=== PATIENT | female | born 1995 | race Caucasian/White ===

== ENCOUNTER 2016-12-02 09:29 | Inpatient (IN) | payer OTHER ==
[2016-12-02] VITALS (30 sets, daily range): BP systolic 126–163; BP diastolic 65–98
[~2016-12-02] VITALS: Ht 172.7 cm; Wt 97.0 kg
[2016-12-02] MEDS ORDERED: LABETALOL HCL 100 MG/20 ML VIAL IV STA (09:34)
[2016-12-02] MEDS ORDERED: BENA25CA4 PO (09:36)
[2016-12-02] MEDS ORDERED: PRENTAB9 PO (09:36)
[2016-12-02] MEDS ORDERED: CALCIUM GLUCONATE 1,000 MG in D5W MINI-BAG PLUS 100 ML IV PRN (10:15)
[2016-12-02] MEDS ORDERED: MAG Sulf (L&D) 4 GM/100 ML 4 GM in APPROPRIATE DILUENT 1 EA IV ONE (10:15)
[2016-12-02 10:29] LABS: MEAN CORPUSCULAR HEMOGLOBIN 28.2 pg (27.0-33.0); MEAN CORPUSCULAR HGB CONC 33.3 g/dl (32.0-36.5); MEAN CORPUSCULAR VOLUME 84.6 fl (80.0-96.0); RED CELL DISTRIBUTION WIDTH 13.1 % (11.5-14.5); WHITE BLOOD COUNT 7.8 K/mm3 (4.0-10.0)
[2016-12-02] MEDS: LR 1,000 ML IV SCH (10:37)
[2016-12-02 10:49] LABS: ALBUMIN 2.6 GM/DL (3.2-5.2); ALBUMIN/GLOBULIN RATIO 0.96 (1.00-1.93); ALKALINE PHOSPHATASE 260 U/L (45-117); ALT/SGPT 14 U/L (12-78); ANION GAP 8 MEQ/L (8-16); AST/SGOT 16 U/L (15-37); BILIRUBIN,TOTAL 0.4 MG/DL (0.2-1.0); BLOOD UREA NITROGEN 4 MG/DL (7-18); CALCIUM LEVEL 8.3 MG/DL (8.5-10.1); CARBON DIOXIDE LEVEL 25 MEQ/L (21-32); CHLORIDE LEVEL 109 MEQ/L (98-107); CREATININE FOR GFR 0.49 MG/DL (0.55-1.02); GLUCOSE, FASTING 86 MG/DL (70-105); POTASSIUM SERUM 3.5 MEQ/L (3.5-5.1); SODIUM LEVEL 142 MEQ/L (136-145); TOTAL PROTEIN 5.3 GM/DL (6.4-8.2); URIC ACID 4.1 MG/DL (2.6-6.0)
[2016-12-02] MEDS: MAG Sulf (OBGYN) 20GM/500ML 20,000 MG in APPROPRIATE DILUENT 1 EA IV SCH ×2 (11:25→20:15)
[2016-12-02] MEDS ORDERED: OXYTOCIN DRIP 30 UNITS in APPROPRIATE DILUENT 1 EA IV SCH (12:45)
--- NOTE | 2016-12-02 13:41 | HPEPDOC ---
Obstetrical History & Physical General Date of Admission Dec 02, 2016 at 09:40 History of Present Illness 21 yo G1 @ 38+3 by 6+6 wk US done on 25APR2017; Final INGE-13DEC2016. Presents to L&D from clinic with severe range BPs and a COLEMAN. Denies DFM, CTX, LOF and VB. GBS negative. Chief Complaint: Pre-eclamsia Information Provided By: Patient Age: 21 : 1 Care Care: Good Care Number of Visits: 11 Dating Final EDC: Dec 13, 2016 Final EDC for Daily Update: Dec 13, 2016 Final EDC by: 1st trimester (US) LMP: Feb 26, 2016 1st Trimester Date: Apr 25, 2016 Weeks + Days: 6.6 Estimated Date of Confinement: Dec 13, 2016 EGA at Admission: 38.3 Antepartum Course Diagnos(e)s 1. varicella NI 2. excessive wt gain 3. 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: No pertinent history Past Medical History Medical History hx stress fx in hips Surgical History: Tonsilectomy (2010), [place] teeth (2014) Family History Significant Family History: No pertinent family hx Social History Marital Status: Family situation: Spouse/partner home Psychosocial History: No pertinent psych hx * Smoker: non-smoker Alcohol: Denies Drugs: denies Abuse Violence Screening Have you been hit/kicked/slapp: No Have you been sexually assault: No Imunizations Tdap status: current ([id number]) Influenza Status: current ([id number]) Allergies Coded Allergies: No Known Allergies (Unverified , 12/02/16) Medications Scheduled Multivitamins/ ( 27-0.8 mg) 1 Tab Tab 1 TAB PO DAILY Scheduled PRN Diphenhydramine HCl (Benadryl Allergy) 25 Mg Cap 25 MG PO QHS PRN PRN SLEEP Physical Examination Physical Examination GENERAL: A&O x 3 BREAST: gravid ABDOMEN: Gravid and non-tender to touch. FETUS: Vertex by Augusto HEART RATE: RRR no m/r/g LUNGS: CTA EXTREMITIES: +1 bilat LE pitting edema. No clonus. DTRs +3 EFW- 3900 grams Vital Signs/I&O Vital Signs Date Time Temp Pulse Resp B/P Pulse Ox O2 Delivery O2 Flow Rate FiO2 12/02/16 11:40 98.9 90 18 158/95 12/02/16 10:01 Room Air Laboratory Data 24H LABS Laboratory Tests 2 12/02/16 10:08: Serology Scanned Report Hepatitis B Testing 12/02/16 10:18: Blood Urea Nitrogen 4L, Creatinine 0.49L, Sodium Level 142, Potassium Level 3.5 , Chloride Level 109H, Carbon Dioxide Level 25, Calcium Level 8.3L, Aspartate Amino Transf (AST/SGOT) 16, Alanine Aminotransferase (ALT/SGPT) 14, Lactate Dehydrogenase 218, Alkaline Phosphatase 260H, Total Bilirubin 0.4, Uric Acid 4.1 , Total Protein 5.3L, Albumin 2.6L, Albumin/Globulin Ratio 0.96L, Anion Gap 8, Syphilis Serology NONREACTIVE 12/02/16 10:40: Fibrinogen 441 12/02/16 10:50: Urine Random Creatinine 88.1, Urine Random Total Protein 245.7H CBC/BMP Laboratory Tests 12/02/16 10:18 Calcium Level 8.3 L, Aspartate Amino Transf (AST/SGOT) 16, Alanine Aminotransferase (ALT/SGPT) 14, Lactate Dehydrogenase 218, Alkaline Phosphatase 260 H, Total Bilirubin 0.4, Uric Acid 4.1, Total Protein 5.3 L, Albumin 2.6 L, Red Blood Count 4.58, Mean Corpuscular Volume 84.6, Mean Corpuscular Hemoglobin 28.2, Mean Corpuscular Hemoglobin Concent 33.3, Red Cell Distribution Width 13.1 Pertinent Laboratoy Data Blood Type: A+ RBC Antibody Screen: Negative HIV: Negative Hepatitis B: Negative Hepatitis C: Unknown Rapid Plasma Reagin: Nonreactive Rubella: Immune Varicella: Nonreactive Chlamydia/Gonorrhea: Negative Group B Streptococcus: Negative Quad Screen Test: Positive (Done at 28 wks. ) Cystic Fibrosis: Declined Glucose Tolerance Test: 112 Anatomy Ultrasound Ultrasound Date: Jul 23, 2016 Placenta Location: Posterior Normal Anatomy: Yes Placenta Previa: No Estimated Weight (grams): 366 Steroid Therapy Steroid Therapy: No Vaginal Examination Dilation: other (Pt sent from clinic. Unable to palpate cervix in clinic d/t being posterior) Presentation: Cephalic presentation Position: Vertex (occiput) Assessment Heart Rate (FHR): 130 Variability: Moderate Accelerations: Positive Decelerations: None Tocometer Contractions: Yes Frequency: irregular, every 2-5 min. Duration: less than 90 seconds Strength: palpated as mild, resting tone palp/soft Multi-drug resistant Organism: No history of MDRO Assessment/Plan Assessment 21 yo G1 @ 38+3 by 6+6 wk US done on 25APR2017; Final INGE-13DEC2016 with pre-e with severe features. Denies DFM, CTX, LOF and VB. GBS negative. 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 Diet: cllear liquid GBS negative IV and labs per unit protocol + pre-e panel Counseled on Pitocin IOL LR, pitocin and magnesium 125ml/hr total Pitocin titrate per unit protocol Magnesium continue at 2 gm/hr unless sx of toxicity develop Q1 hour magnesium checks by nursing staff Calcium gluconate at bedside Anticipate C-S as appropriate. ROHIT QUACH CNM Dec 02, 2016 13:41
--- NOTE | 2016-12-02 16:53 | IPNPDOC ---
Obstetrical Progress Note Date of Service The patient was seen on 12/02/16 at 16:38. Progress Note INTRAPARTUM PROGRESS NOTE [id number] @1630 21 yo G1 @ 38+3 by 6+6 wk US done on 25APR2017; Final INGE-13DEC2016. Presents to L&D from clinic with severe range BPs and a COLEMAN. IOL for pre-e with severe features. GBS negative. S: pt reports she has a COLEMAN. Denies n/v, RUQ pain and visual changes. States she just does not feel well. spouse at bedside. O: VS- continues to have mild range BPs and normal range BPs, all other VS WNL , afebrile FHR- BL- 125, moderate variability, + accels, no decels CTX- Q 2-4 min, lasting < 90 sec, palpated as mild, resting tone palpated as soft SVE- closed/thick/-2, post/firm/vtx DTRs +3, lungs CTA, + 1 pitting edema bilat LE Pitocin @ 12 mU/min Magnesium 2 gms/hr LR @ 63 ml/hr Urine Output: 1090 ml since admission A: 21 yo G1 @ 38+3 here for IOL for pre-e with severe features. CAT I FHR tracing. no cervical change noted. P: continue to monitor and assess, Q1 hour mag checks, Reassess in 2 hours or prn, continue to titrate pitocin per unit protocol. VS, I&O, [facility] Vital Signs/I&O Vital Signs Date Time Temp Pulse Resp B/P Pulse Ox O2 Delivery O2 Flow Rate FiO2 12/02/16 15:09 91 18 141/79 12/02/16 13:40 99.6 12/02/16 10:01 Room Air Laboratory Data 24H LABS Laboratory Tests 2 12/02/16 10:08: Serology Scanned Report Hepatitis B Testing 12/02/16 10:18: Blood Urea Nitrogen 4L, Creatinine 0.49L, Sodium Level 142, Potassium Level 3.5 , Chloride Level 109H, Carbon Dioxide Level 25, Calcium Level 8.3L, Aspartate Amino Transf (AST/SGOT) 16, Alanine Aminotransferase (ALT/SGPT) 14, Lactate Dehydrogenase 218, Alkaline Phosphatase 260H, Total Bilirubin 0.4, Uric Acid 4.1 , Total Protein 5.3L, Albumin 2.6L, Albumin/Globulin Ratio 0.96L, Anion Gap 8, Syphilis Serology NONREACTIVE 12/02/16 10:40: Fibrinogen 441 12/02/16 10:50: Urine Random Creatinine 88.1, Urine Random Total Protein 245.7H CBC/BMP Laboratory Tests 12/02/16 10:18 Calcium Level 8.3 L, Aspartate Amino Transf (AST/SGOT) 16, Alanine Aminotransferase (ALT/SGPT) 14, Lactate Dehydrogenase 218, Alkaline Phosphatase 260 H, Total Bilirubin 0.4, Uric Acid 4.1, Total Protein 5.3 L, Albumin 2.6 L, Red Blood Count 4.58, Mean Corpuscular Volume 84.6, Mean Corpuscular Hemoglobin 28.2, Mean Corpuscular Hemoglobin Concent 33.3, Red Cell Distribution Width 13.1 ROHIT QUACH CNM Dec 02, 2016 16:53
[2016-12-02] MEDS ORDERED: ACETAMINOPHEN TAB 650MG DOSE (2X325MG) PO ONE (17:00)
[2016-12-03] VITALS (57 sets, daily range): BP systolic 125–163; BP diastolic 58–94
[2016-12-03] MEDS ORDERED: diphenhydrAMINE 25 MG CAP PO ONE (02:15)
[2016-12-03] MEDS: MAG Sulf (OBGYN) 20GM/500ML 20,000 MG in APPROPRIATE DILUENT 1 EA IV SCH ×3 (04:56→23:37)
[2016-12-03] MEDS ORDERED: ACETAMINOPHEN 325 MG TAB PO ONE (10:00)
[2016-12-03] MEDS ORDERED: miSOPROStol 50 MCG 1/2 TAB (S0191) PV ONE ×2 (11:30→16:15)
[2016-12-03] MEDS: LR 1,000 ML IV SCH (18:09)
[2016-12-03] MEDS ORDERED: miSOPROStol 25 MCG 1/4 TAB (S0191) As Ordered ONE (21:09)
[2016-12-03] MEDS ORDERED: LIDOCAINE 2% JELLY 30 ML TOP PRN (21:30)
[2016-12-03] MEDS ORDERED: ACETAMINOPHEN 500 MG TAB PO PRN (21:30)
[2016-12-03] MEDS ORDERED: miSOPROStol 25 MCG 1/4 TAB (S0191) PV ONE (21:30)
--- NOTE | 2016-12-03 21:36 | IPNPDOC ---
Text Note Date of Service The patient was seen on 12/03/16. NOTE Sharyn is a 21yo with SIUP at 38w3d undergoing IOL for pre-eclampsia with severe features diagnosed based on severe range bp's noted in clinic with supporting prot:creat. She was ctx'ing frequently enough on admission that she was started with pitocin and overnight was titrated up to 20u. This morning pitocin was turned off and she was given a pitocin rest, with placement of vaginal cytotec 50mcg after. She had repeat dose of 25mcg 4hr after first dose of cytotec. On this current check she has SCE 2/50/-3, and she does not tolerate vaginal exams well so juarez bulb unable to be placed. Re-dosed 25mcg cytotec vaginally and will give 25mcg bucally as well. At time of recent exam, she stated she is not happy with the fact that this induction is "taking so long". She stated, "I just want this baby out of me. I' m tired of being here." Her mother states she is upset because she has not had any real food since yesterday (has been on clear liquid diet), and she has discomfort from the juarez. She has juarez in place secondary to receiving Mg sulfate 2g/hr for maternal neuro protection. UOP >200ml/hr. BP's normotensive to mild range. She endorses slight headache. Has not had tylenol recently and may be contributed to by hunger. Re-confirmed cephalic presentation by TAUS performed by GOLD Giron earlier today Cat I FHRT. No signs of worsening pre-E or Mg toxicity Plan: -continue IOL with cytotec 25mcg vaginal/25mcg buccal now -CEFM -Regular diet x1 meal now and then resume clear liquids -lidocaine topical gel for juarez catheter discomfort -continue Mg sulfate, juarez catheter, bedrest, Mg checks q1hr -tylenol for headache MD Sylvie Crisostomo,Robert I+O Robert GARCIA I+O Vital Signs Date Time Temp Pulse Resp B/P Pulse Ox O2 Delivery O2 Flow Rate FiO2 12/03/16 18:54 99.2 90 20 141/73 12/02/16 10:01 Room Air I&O- Last 24 Hours up to 6 AM 3/21/17 06:00 Intake Total 1021 ml Output Total 4415 ml Balance -3394 ml JOAQUIN DURANT MD Dec 03, 2016 21:36
[2016-12-04] VITALS (37 sets, daily range): BP systolic 119–199; BP diastolic 61–104
--- NOTE | 2016-12-04 01:25 | IPNPDOC ---
Text Note Date of Service The patient was seen on 12/04/16. NOTE Patient more comfortable on this visit, juarez catheter pain improved with lidocaine gel and no longer endorses headache. Had dinner. BP's still normotensive to mild range, excellent UOP. Cat I FHRT. SCE now 360/-3, juarez bulb placed. Patient endorsed discomfort after juarez bulb placement, desires IV pain medication. Will begin low dose pitocin up to 6u four hours after last dose of cytotec until juarez bulb falls out, then will titrate per protocol to adequate ctx. Continue IV Mg sulfate No s/sx of worsening pre-E or Mg toxicity 2mg IV stadol q4hr prn pain Dr. Joaquin Puga MD VS,Robert, I+O VS, Robert, I+O Vital Signs Date Time Temp Pulse Resp B/P Pulse Ox O2 Delivery O2 Flow Rate FiO2 12/03/16 18:54 99.2 90 20 141/73 12/02/16 10:01 Room Air I&O- Last 24 Hours up to 6 AM 12/04/16 06:00 Intake Total 3717 ml Output Total 3925 ml Balance -208 ml JOAQUIN PUGA MD Dec 04, 2016 01:25
[2016-12-04] MEDS ORDERED: BUTORPHANOL 2 MG/ML INJ (J0595) IV PRN (01:30)
[2016-12-04] MEDS ORDERED: OXYTOCIN DRIP 30 UNITS in APPROPRIATE DILUENT 1 EA IV SCH ×2 (01:45→19:43)
[2016-12-04] MEDS ORDERED: FENTANYL 2MCG/ML ROPIVACAINE 0.2% NACL 250 ML CADD As Ordered ONE (02:39)
[2016-12-04] MEDS ORDERED: LR 500 ML IV SCH (02:45)
[2016-12-04 02:58] LABS: MEAN CORPUSCULAR HEMOGLOBIN 28.3 pg (27.0-33.0); MEAN CORPUSCULAR HGB CONC 33.8 g/dl (32.0-36.5); MEAN CORPUSCULAR VOLUME 83.8 fl (80.0-96.0); RED CELL DISTRIBUTION WIDTH 13.2 % (11.5-14.5); WHITE BLOOD COUNT 7.4 K/mm3 (4.0-10.0)
[2016-12-04] MEDS ORDERED: LACTATED RINGER'S 1000 ML IV PRN (03:18)
[2016-12-04] MEDS ORDERED: EPIDURAL COMMENT XX SCH (03:18)
[2016-12-04] MEDS ORDERED: REFRIGERATOR IV KEYS XX PRN (03:18)
[2016-12-04] MEDS ORDERED: ePHEDrine SULFATE 25 MG/5 ML(5MG/ML) SYRINGE IV PRN (03:18)
[2016-12-04] MEDS ORDERED: ONDANSETRON 4MG/2ML VIAL (J2405) IV PRN ×3 (03:18→20:15)
[2016-12-04] MEDS ORDERED: diphenhydrAMINE INJ 50MG/ML VIAL (J1200) IV PRN (03:18)
[2016-12-04] MEDS ORDERED: FENTANYL/ROPIVACAINE/NACL CADD 250 ML EPIDURAL SCH (03:18)
[2016-12-04] MEDS ORDERED: EPIDURAL/PCA KEYS XX PRN (03:18)
[2016-12-04] MEDS ORDERED: NALOXONE INJ 0.4 MG/1 ML VIAL (J2310) IV PRN ×3 (03:18→13:53)
[2016-12-04] MEDS: MAG Sulf (OBGYN) 20GM/500ML 20,000 MG in APPROPRIATE DILUENT 1 EA IV SCH ×2 (09:15→20:22)
[2016-12-04] MEDS ORDERED: NALBUPHINE HCL 10 MG/ML AMP (J2300) IV PRN ×2 (13:53→20:15)
[2016-12-04] MEDS ORDERED: METOCLOPRAMIDE INJ 10MG/2ML VIAL (J2765) IV PRN (13:53)
[2016-12-04] MEDS ORDERED: LR 1,000 ML IV SCH (15:18)
[2016-12-04] MEDS ORDERED: ACETAMINOPHEN 650 MG SUPP PR ONE (15:30)
[2016-12-04] MEDS ORDERED: BICITRA 30ML SOLN UDC PO ONE (15:30)
[2016-12-04] MEDS ORDERED: BUPIVACAINE HCL 0.25% 10 ML VIAL SC ONE (15:30)
[2016-12-04 15:37] LABS: MEAN CORPUSCULAR HEMOGLOBIN 28.7 pg (27.0-33.0); MEAN CORPUSCULAR HGB CONC 33.4 g/dl (32.0-36.5); MEAN CORPUSCULAR VOLUME 86.1 fl (80.0-96.0); RED CELL DISTRIBUTION WIDTH 13.3 % (11.5-14.5); WHITE BLOOD COUNT 12.5 K/mm3 (4.0-10.0)
[2016-12-04] MEDS ORDERED: KETOROLAC 60 MG/2 ML VIAL (J1885) As Ordered ONE (18:56)
[2016-12-04] MEDS ORDERED: ePHEDrine SULFATE 25 MG/5 ML(5MG/ML) SYRINGE As Ordered ONE (18:56)
[2016-12-04] MEDS ORDERED: MORPHINE PRES-FREE INJ 10 MG/10 ML VIAL (J2274) As Ordered ONE (18:56)
[2016-12-04] MEDS ORDERED: OXYTOCIN INJ 10 UNITS/ML VIAL (J2590) As Ordered ONE ×2 (18:56→19:27)
[2016-12-04] MEDS ORDERED: PHENYLephrine HCL 500 MCG/5 ML (100MCG/ML) SYRINGE (J2370) As Ordered ONE ×2 (18:56→19:11)
[2016-12-04] MEDS ORDERED: ONDANSETRON 4MG/2ML VIAL (J2405) As Ordered ONE (18:56)
[2016-12-04] MEDS ORDERED: METHYLERGONOVINE MALEATE 0.2 MG TAB PO PRN (19:45)
[2016-12-04] MEDS ORDERED: MOM 30ML SUSPENSION UDC PO PRN (19:45)
[2016-12-04] MEDS ORDERED: ANUSOL HC CREAM 30GM TOP PRN (19:45)
[2016-12-04] MEDS ORDERED: OXYTOCIN INJ 10 UNITS/ML VIAL (J2590) IV ONE (19:45)
[2016-12-04] MEDS ORDERED: RHOGAM 300 MCG (1500 IU) INJ (J2790) IM SCH (19:45)
[2016-12-04] MEDS ORDERED: MEASLES,MUMPS,RUBELLA VACCINE INJ (MMR-II) (90707) SC SCH (19:45)
[2016-12-04] MEDS ORDERED: miSOPROStol 200 MCG TAB (S0191) PR ONE ×2 (19:45→21:30)
[2016-12-04 19:52] LABS: CORD GAS HCO3 A 17.8 MEQ/L; CORD GAS PCO2 A 68.9 mmHg; CORD GAS PH A 7.031 UNITS; CORD GAS PO2 A 14.6 mmHg
[2016-12-04 19:53] LABS: CORD GAS O2 SAT A 18.2 %; CORD GAS SBC A 12.4 MEQ/L
[2016-12-04 20:06] LABS: CORD GAS ABE V -13.8; CORD GAS HCO3 V 17.8 MEQ/L; CORD GAS O2 SAT V 32.3 %; CORD GAS PCO2 V 66.5 mmHg; CORD GAS PH V 7.046 UNITS; CORD GAS PO2 V 22.3 mmHg; CORD GAS SBC V 12.8 MEQ/L; CORD GAS TCO2 V 19.9 MEQ/L
[2016-12-04] MEDS ORDERED: MEPERIDINE INJ 25 MG/ML VIAL (J2175) IV PRN (20:15)
[2016-12-04] MEDS ORDERED: fentaNYL 100 MCG/2 ML INJECTION (J3010) IV PRN (20:15)
[2016-12-04 23:33] LABS: MEAN CORPUSCULAR HEMOGLOBIN 28.5 pg (27.0-33.0); MEAN CORPUSCULAR HGB CONC 33.5 g/dl (32.0-36.5); RED CELL DISTRIBUTION WIDTH 13.3 % (11.5-14.5)
[2016-12-05] VITALS (18 sets, daily range): BP systolic 128–159; BP diastolic 59–90
[2016-12-05] MEDS: KETOROLAC 30 MG/ML VIAL (J1885) IV SCH ×4 (01:25→18:37)
[2016-12-05 07:19] LABS: MEAN CORPUSCULAR HEMOGLOBIN 28.6 pg (27.0-33.0); MEAN CORPUSCULAR HGB CONC 34.3 g/dl (32.0-36.5); MEAN CORPUSCULAR VOLUME 83.6 fl (80.0-96.0); RED CELL DISTRIBUTION WIDTH 13.2 % (11.5-14.5); WHITE BLOOD COUNT 12.4 K/mm3 (4.0-10.0)
--- NOTE | 2016-12-05 08:52 | IPN ---
DATE: 12/05/2016 This lady is 2 now para 1, who was admitted for induction of labor at 38 and 3 weeks of gestation with a history of severe range blood pressures. She was induced with multiple times with Cytotec, Sherman bulb, Pitocin. She failed to descend, failed to dilate. Was in the POP position. She was becoming quite edematous and it was elected to go ahead and do a primary section, delivered a live female , 9 pounds 10 ounces, 4374 grams, scores of 9 and 10 at 1 and 5 minutes, respectively. The arterial pH was 7.03, base excess -14, venous pH 7.04, base excess -13.8. Her admitting hemoglobin was 12.9, hematocrit 38.7 and platelets were 196. In the interim, hemoglobin at midnight was 12.0, hematocrit 35.9 and platelets were 203. She required Cytotec per rectum because of the atony of the uterus being on mag sulfate for a persistently long period of time. The uterus did contract down positively with Cytotec and IV Pitocin, not requiring Hemabate for any other uterotonics. Overnight, she diuresed quite well. She averaged about 125 mL of urine. We cut down her total volume intake because of her pedal edema +3. She had midrange to high range blood pressures anywhere from 128/59 to 134/61 to 132/63 to 150/70 to 156/70 to 148/64. The high range blood pressures as per protocol was not followed and the physician reproduction order processor was not notified. Throughout the period of time, her reflexes are still brisk. She is on 1 gram of mag sulfate. She is having moderate lochia. She has 3+ pedal edema. She is awake, alert, not distressed. Our plan of management today is to remove the Sherman catheter, she is diuresing well, assist her to the bathroom in order to wash and use the facilities, maintain her mag sulfate until 8 o'clock tonight, which will make her 24 hours of neuro complete. Continue monitoring her blood pressure and her output and monitoring her reflexes. The rest of the examination is unremarkable. She is normocephalic, atraumatic. Neck with full range of motions. Pupils equal and reactive to light. She does not complain of a headache. She does not complain of right upper quadrant pain. She does not complain of nausea, vomiting. Her distal pulses are symmetric. No evidence of deep vein thrombosis (DVT), PE or superficial phlebitis. Chest is clear bilaterally to the bases. No wheezes or rhonchi. Uterus is two below. Lochia is moderate. Incision is clean and dry and there are four quadrant bowel sounds noted. She has no rashes, lesions or pruritus. No arthralgia or myalgia. She is not complaining of cough, wheeze, shortness of breath, dyspnea on exertion or headache. She is not complaining of any ophthalmologic signs. She has no chest pain. She is not bleeding. She is neuro complete. Sherman is draining well. She has no nausea, vomiting, diarrhea or constipation. In summary, we have a lady with section who still has significant edema but is diuresing well. Her blood pressures are mid to high range; however, we have not initiated antihypertensives at the present time. We will reassess her over the next 24 hours.
[2016-12-05] MEDS: PRENATAL VITAMIN TAB PO SCH (08:54)
[2016-12-05] MEDS: MAG Sulf (OBGYN) 20GM/500ML 20,000 MG in APPROPRIATE DILUENT 1 EA IV SCH (17:30)
[2016-12-06] VITALS (18 sets, daily range): BP systolic 134–169; BP diastolic 60–103
[2016-12-06] MEDS: PERCOCET 5MG/325MG TAB PO PRN ×5 (00:24→23:31)
[2016-12-06] MEDS: PRENATAL VITAMIN TAB PO SCH (08:45)
[2016-12-06] MEDS ORDERED: COLA100C PO (11:12)
[2016-12-06] MEDS ORDERED: OXYC1TAB23 PO (11:12)
[2016-12-06] MEDS ORDERED: LABETALOL HCL 100 MG/20 ML VIAL IV STA (18:31)
[2016-12-06] MEDS: DOCUSATE SODIUM 100 MG CAP PO PRN (19:47)
[2016-12-06] MEDS: LABETALOL 200 MG TAB PO SCH (20:01)
--- NOTE | 2016-12-06 20:52 | IPNPDOC ---
Text Note Date of Service The patient was seen on 12/06/16. NOTE I was called by RN for severe range bp this evening. I went to see Sharyn who reported feeling well overall. No COLEMAN, vision changes or abdominal pain. Instructed RN to give 20mg IV labetalol x1 and then start her on oral regimen of 200mg labetalol BID. BP came down to mild range. Discussed plan with patient. Will continue to keep an eye to bp and titrate oral labetalol up as needed. Plan to d/c patient home on labetalol when bp proven stable. Dr. Joaquin Puga MD LarsenSari GRISSOM VS,Robert, I+O VS, Robert, I+O Vital Signs Date Time Temp Pulse Resp B/P Pulse Ox O2 Delivery O2 Flow Rate FiO2 12/06/16 20:01 78 161/84 12/06/16 19:48 18 12/06/16 19:26 99.0 12/06/16 19:16 97 12/02/16 10:01 Room Air I&O- Last 24 Hours up to 6 AM 12/06/16 06:00 Intake Total 2940 ml Output Total 3600 ml Balance -660 ml JOAQUIN PUGA MD Dec 06, 2016 20:52
[2016-12-07] VITALS (23 sets, daily range): BP systolic 138–179; BP diastolic 70–112
[2016-12-07] MEDS: PERCOCET 5MG/325MG TAB PO PRN ×4 (03:31→22:09)
[2016-12-07] MEDS: PRENATAL VITAMIN TAB PO SCH (08:14)
[2016-12-07] MEDS: LABETALOL 200 MG TAB PO SCH ×3 (08:14→20:14)
[2016-12-07] MEDS ORDERED: LABETALOL HCL 100 MG/20 ML VIAL IV STA (11:56)
[2016-12-07] MEDS ORDERED: LABETALOL HCL 100 MG/20 ML VIAL As Ordered ONE (11:57)
[2016-12-07] MEDS: DOCUSATE SODIUM 100 MG CAP PO PRN (20:14)
[2016-12-08] VITALS (19 sets, daily range): BP systolic 115–185; BP diastolic 61–111
[2016-12-08] MEDS: PERCOCET 5MG/325MG TAB PO PRN ×4 (02:17→22:23)
[2016-12-08] MEDS: NIFEdipine 10 MG CAP PO SCH (08:03)
[2016-12-08] MEDS: PRENATAL VITAMIN TAB PO SCH (08:03)
[2016-12-08] MEDS: LABETALOL 200 MG TAB PO SCH ×3 (08:04→21:08)
--- NOTE | 2016-12-08 12:38 | RO ---
DATE OF PROCEDURE: 12/02/2016 PREOPERATIVE DIAGNOSIS: Gestational hypertension, failure to dilate, failure progress, persistent occiput posterior, terminal meconium.nrfhr POSTOPERATIVE DIAGNOSIS: OPERATION PROPOSED: Primary section. OPERATION PERFORMED: Primary section. SURGEON: Dr. Bharath Florian COMPUTER TAPE LIBRARIAN: Deonna ANESTHESIA: Spinal plus local anesthetic for intraperitoneal procedures. ESTIMATED BLOOD LOSS: 450 mL. Under adequate anesthesia, prepped and draped in the supine position, sequentials on board, antibiotics preoperatively 1 hour preoperative, acetaminophen suppository 1300 mg per rectum, a Pfannenstiel incision was made two fingerbreadths above symphysis pubis passing through abdominal layers, securing hemostasis. Opening the peritoneal cavity, we noticed that the lower segment was quite thin as this patient had been laboring. A low transverse incision was made into the uterus. We delivered a live , 9 pounds 1 ounce, 4374 grams , Apgars of nine and nine at 1 and 5 minutes respectively. The baby was in the POP position and upon delivery had thick meconium terminally from the rectum. The baby was passed off to the team. Arterial and venous pH were performed. Exploration and manual removal of the placenta was done. Three-vessels and the cord membranes and tissues intact. We swept the intrauterine aspect clean. The lower segment was quite flimsy in nature. The uterus was massaged vigorously. We gave the patient 5 mg of Pitocin IV push, 30 unit bag running full, and massaged the uterus. It was very slow to contract down. The patient had been on magnesium sulfate. There was also the evidence of a nonreassuring heart which was added into the preoperative diagnosis. The lower segment was oversewn in the usual fashion in two layers and reperitonealization was performed. With instrument and pad count correct and both ovaries and tubes appeared to be normal, we then closed the abdomen with running stitch for the peritoneum, same for the fascia, interrupted subcutaneous Dexon to the skin. Marcaine 0.25% mL spray and Telfa were applied. Subsequent to that, we put 1000 mg of Cytotec per rectum to ensure uterine contractility and continued to run the Pitocin. With instrument and pad count correct, the patient was then sent to recovery in good condition. ZULLY
[2016-12-08 16:50] LABS: MEAN CORPUSCULAR HEMOGLOBIN 28.8 pg (27.0-33.0); MEAN CORPUSCULAR HGB CONC 34.4 g/dl (32.0-36.5); MEAN CORPUSCULAR VOLUME 83.8 fl (80.0-96.0); RED CELL DISTRIBUTION WIDTH 12.8 % (11.5-14.5); WHITE BLOOD COUNT 6.9 K/mm3 (4.0-10.0)
[2016-12-08] MEDS ORDERED: LABETALOL HCL 100 MG/20 ML VIAL IV STA (17:00)
[2016-12-08 17:12] LABS: ANION GAP 7 MEQ/L (8-16); BLOOD UREA NITROGEN 7 MG/DL (7-18); CALCIUM LEVEL 8.5 MG/DL (8.5-10.1); CARBON DIOXIDE LEVEL 26 MEQ/L (21-32); CHLORIDE LEVEL 109 MEQ/L (98-107); CREATININE FOR GFR 0.56 MG/DL (0.55-1.02); GLUCOSE, FASTING 86 MG/DL (70-105); POTASSIUM SERUM 4.2 MEQ/L (3.5-5.1); SODIUM LEVEL 142 MEQ/L (136-145)
[2016-12-08 20:06] LABS: ALKALINE PHOSPHATASE 190 U/L (45-117); URIC ACID 5.9 MG/DL (2.6-6.0)
[2016-12-09] VITALS (7 sets, daily range): BP systolic 128–177; BP diastolic 66–88
[2016-12-09] MEDS: PERCOCET 5MG/325MG TAB PO PRN ×5 (04:16→23:59)
[2016-12-09] MEDS: NIFEdipine 10 MG CAP PO SCH (08:45)
[2016-12-09] MEDS: LABETALOL 200 MG TAB PO SCH ×2 (08:45→23:58)
[2016-12-09] MEDS: PRENATAL VITAMIN TAB PO SCH (08:45)
--- NOTE | 2016-12-09 09:04 | IPNPDOC ---
Text Note Date of Service The patient was seen on 12/09/16. NOTE Post-Op Day 5 Sharyn is a 21yo [id number] on post-op day 5 s/p uncomplicated PLTCS indicated for NRFHT/arrest of dilation at 38w4d when undergoing IOL for severe pre- eclampsia. She received 24hr of IV Mg sulfate after delivery. Since that time we have been working to get her on a good bp med regimen since her bp's are labile. She has no symptoms of pre-eclampsia. She is . Lochia normal, spontaneously voiding and ambulating without difficulty. Tolerating regular diet. Denies f/c/n/v/SOB/CP/COLEMAN/abdominal pain/vision changes. BP this morning severe range (due for oral nifedipine and labetalol now), afebrile Exam: General: WDWN, NAD, resting comfortably Cardiac: S1S2 present, no murmur Lungs: CTAB without wheeze/crackles Abdomen: soft, NTTP, fundus firm u-2cm, pfannensteil with no surrounding erythema, no drainage Extremities: SCDs on and functioning, 2+ pitting edema of BLE Assessment: Sharyn is a 21yo [id number] on post-op day 5 s/p uncomplicated PLTCS indicated for NRFHT/arrest of dilation at 38w4d when undergoing IOL for severe pre-eclampsia. Continued elevated bp's, benign exam. No e/o infection, hemodynamically stable. No symptoms of pre-eclampsia. Plan: -10mg PO nifedipine qd -200mg labetalol TID -If bp at noon still elevated, will titrate up on labetalol for next dose accordingly -routine post-op/post- care -Regular diet -Encourage ambulation and and use of IS Dr. Joaquin Puga MD [place], I+O Robert GARCIA, I+O Laboratory Tests 12/08/16 16:38 Calcium Level 8.5, Red Blood Count 4.07, Mean Corpuscular Volume 83.8, Mean Corpuscular Hemoglobin 28.8, Mean Corpuscular Hemoglobin Concent 34.4, Red Cell Distribution Width 12.8 Vital Signs Date Time Temp Pulse Resp B/P Pulse Ox O2 Delivery O2 Flow Rate FiO2 12/09/16 08:45 160/85 12/09/16 08:45 77 12/09/16 04:46 20 12/09/16 04:20 Room Air 12/09/16 01:41 98.7 97 I&O- Last 24 Hours up to 6 AM 12/09/16 05:59 Output Total 400 ml Balance -400 ml JOAQUIN PUGA MD Dec 09, 2016 09:04
[2016-12-09] MEDS ORDERED: LABETALOL 200 MG TAB PO SCH (16:00)
[2016-12-10 02:22] VITALS: BP 140/76
[2016-12-10 05:45] VITALS: BP 181/93
[2016-12-10 06:01] VITALS: BP 168/102
[2016-12-10 07:02] VITALS: BP 143/80
[2016-12-10] MEDS: LABETALOL 200 MG TAB PO SCH (07:51)
[2016-12-10] MEDS: PERCOCET 5MG/325MG TAB PO PRN ×2 (07:52→12:19)
[2016-12-10 08:58] VITALS: BP 148/70
[2016-12-10] MEDS: PRENATAL VITAMIN TAB PO SCH (08:58)
[2016-12-10] MEDS: NIFEdipine 10 MG CAP PO SCH (08:58)
[2016-12-10 10:24] VITALS: BP 115/59
[2016-12-10] MEDS ORDERED: PROC10CA PO (15:54)
== END 2016-12-10 16:45 | disposition home or self-care (01) | DRG 766 ==
LOC: M LDO 09:29 → M LDI 09:40 → M OBS 12-04 21:27
PROVIDERS: ADMIT Midwife; ATTEND Midwife
PROC: 10D00Z1 Extraction of Products of Conception, Low, Open Approach (ICD-10-PCS; principal; 2016-12-02)
DX: O14.14 Severe pre-eclampsia complicating childbirth (principal); Z37.0 Single live birth; O62.0 Primary inadequate contractions; Z3A.38 38 weeks gestation of pregnancy; O61.0 Failed medical induction of labor; O77.0 Labor and delivery complicated by meconium in amniotic fluid; O64.0XX0 Obstructed labor due to incomplete rotation of fetal head, not applicable or unspecified